=== PATIENT | female | born 1995 | race Caucasian/White ===

== ENCOUNTER 2017-11-08 09:12 | Inpatient (IN) ==
[2017-11-08] MEDS ORDERED: Famotidine 20 MG/2 ML VIAL IVP PRN (10:52)
[2017-11-08] MEDS ORDERED: Ondansetron 4 MG/2 ML VIAL IVP PRN (10:52)
[2017-11-08] MEDS ORDERED: Naloxone 0.4 MG/ML INJ IVP PRN (10:52)
[2017-11-08 12:05] LABS: Basophils # 0.1 K/mcL (0.0-0.2); Basophils % 0.6 %; Eosinophils % 0.4 %; Hematocrit 38.9 % (35.3-44.9); Hemoglobin 13.4 g/dL (11.5-15.4); Immature Granulocytes % 0.3 % (0-4); Lymphocytes # 1.6 K/mcL (0.6-4.6); Lymphocytes % 15.9 %; Mean Corpuscular HGB Conc 34.4 g/dL (31.6-35.5); Mean Corpuscular Hemoglobin 33.7 pg (28.0-33.3); Mean Corpuscular Volume 97.7 fL (83.0-100.0); Mean Platelet Volume 11.6 fL (9.4-12.4); Monocytes # 0.7 K/mcL (0.0-1.3); Monocytes % 6.9 %; Neutrophils # 7.5 K/mcL (1.6-8.9); Platelet Count 209 K/mcL (140-400); Red Blood Count 3.98 M/mcL (3.82-4.97); Red Cell Distribution Width 12.9 % (11.5-14.5); Segmented Neutrophils % 75.9 %
--- NOTE | 2017-11-08 12:25 | OB/GYN History & Physical ---
Date of Encounter: 11/08/17 Time of Encounter: 13:28 Assessment and Plan (1) 39 weeks gestation of Current visit: Yes Status: Acute Admit to L&D for observation of labor Expectant management Labs-CBC and clot to hold Intermittent auscultation Pain management plan-natural childbirth GBS negative Anticipate Dr. Short is the OB middleware solutions architect and is available as needed. (2) Intrauterine Current visit: Yes Status: Acute (3) Intact amniotic membranes Current visit: Yes Status: Acute Qualifiers: Trimester: third trimester Qualified Code(s): Z34.93 - Encounter for supervision of normal , unspecified, third trimester History of Present Illness Chief complaint: ?SROM HPI: Ms. Ladd is a 22 year old female at 39 weeks 4 days gestation with an EDB of 11/11/17 dated by early ultrasound. She presents today with complaints of leaking fluid after waking up this morning. She reports she was walking around her house and noticed that she has should soaked her underwear. She then changed her underwear did not appear. She also noticed at this time that she had some bloody show. She endorses good movement reports intermittent contractions and denies vaginal bleeding, headache, vision changes , epigastric pain. She has been seen by the midwives during this . Records are available electronically and have been reviewed. Labs: O+ GBS negative GC/CL negative Hep B negative HIV negative T. Palladium negative Rubella immune Varicella nonimmune Past Med Surg Social Fam HX - Past Medical History Medical history: other Additional medical history: wisdome teeth extraction @ appx 17-18 years of age Psychiatric history: no psych history - Past Surgical History Surgical History: no surgical history - Social History Smoking Status: Never smoker Smokeless Tobacco Status: No Alcohol use: none Drug use: none - Family History Mother Living Status: Still Living Hx Family Cardiac Disorders: No Hx Family Respiratory Disorders: No Hx Family Cancer: No Hx Family GI Disorders: No Hx Family Endocrine Disorder: No Hx Family Neuromuscular Disorders: No Hx Family Neurologic Disorders: No Hx Family HEENT Disorders: No Hx Family Autoimmune Disorders: No Obstetrical History - Pregnancies : 1 Para: 0 Term: 0 : 0 Ab's: 0 Livin Medications and Allergies Vit Calc,Iron,Folic [ Vitamins] 1 each PO 11/08/17 [History] 3 Allergy/AdvReac Type Severity Reaction Status Date / Time No Known Allergies Allergy Verified 11/08/17 10:51 Review of System OB All systems PM: reviewed and no additional remarkable complaints except as stated Exam - Constitutional Constitutional: well developed, well nourished, no acute distress, average body habitus - HEENT HEENT: Normocephaly, Mucus Membranes Moist - Neck Neck exam: full ROM - Lungs Respiratory exam: CTAB - Cardiovascular Cardiovascular exam: RRR, +S1, +S2 - Breasts Breast: bilateral: normal - Abdomen Abdomen: Present: bowel sounds normal, gravid, non tender - Extremities Extremities exam: normal capillary refill, radial pulses palpable and symmetrical - Vulva Vulva: bilateral: normal - Vagina Vagina: Present: normal moisture - Cervix Dilation: 1 Effacement: 50 Station: -2 - Uterus Uterus exam: Present: normal size, normal contour - Adnexa Adnexa: bilateral: normal - Anus/Rectum Anus/Rectum: Present: normal perianal skin Results Result Diagrams: 11/08/17 10:56 Abnormal lab results MCH 33.7 pg (28.0-33.3) H 11/08/17 10:56 All other labs normal. - VTE Reasons for not Prescribing Prophylaxis: Treatment not Indicated - Low risk for VTE
[2017-11-08 12:38] LABS: Amphetamine Screen,Urine Negative ng/mL (Cutoff=1000); Barbiturate Screen,Urine Negative ng/mL (Cutoff=200); Benzodiazepines Screen,Urine Negative ng/mL (Cutoff=200); Cannabinoid Screen,Urine Negative ng/mL (Cutoff = 50); Cocaine Screen,Urine Negative ng/mL (Cutoff= 300); Opiate Screen,Urine Negative ng/mL (Cutoff=300); Phencyclidine Screen,Urine Negative ng/mL (Cutoff=25)
[2017-11-08] MEDS ORDERED: Ringers Solution, Lactated 1,000 ML ONE ×2 (21:43→22:56)
--- NOTE | 2017-11-08 22:17 | OB Labor Progress Note ---
Date of Encounter: 11/08/17 Time of Encounter: 20:15 Labor Progress Note - Subjective Subjective: Pt reports contractions became more intense within the last hour starting around 1900. - Cervix Cervix: 5-6/80/-1 - Heart Tones Heart Tones: Intermittent auscultation Baseline 120s Audible accelerations No decelerations - [place]: Contractions every 2-3 minutes and palpate strong - Interventions Interventions: SVE - Plan Plan: Continue expectant management Encourage frequent position changes Anticipate
[2017-11-08] MEDS ORDERED: *HR* FentaNYL (PF) 100 MCG/2 ML VIAL EP ONE (23:39)
[2017-11-08] MEDS ORDERED: Bupivacaine-MPF 0.25% 10 ML VIAL EP ONE (23:39)
[2017-11-08] MEDS ORDERED: Epidural Premix (fent/bupiv) 110 ML EP SCH (23:45)
--- NOTE | 2017-11-09 00:19 | OB Labor Progress Note ---
Date of Encounter: 11/09/17 Time of Encounter: 23:34 Labor Progress Note - Subjective Subjective: Pt extremely uncomfortable with contractions and is not tolerating them well at this point. We discussed the possibility of placing epidural and patient declines at this time. - Cervix Cervix: unchanged, then rapidly changed to complete - Heart Tones Heart Tones: Baseline 120 Minimal to moderate variability Accelerations present variable and late decelerations FHR Category II - [place]: Contractions every 2-3 minutes and palpate strong - Interventions Interventions: SVE Epidural discussion - Plan Plan: Continue expectant management Position changes as needed Anticipate
--- NOTE | 2017-11-09 00:50 | OB/GYN Procedure Note ---
Delivery - Delivery Date: 11/09/17 Provider: Georgiana Sohrt Intrapartum events: none Delivery induction: none Delivery monitor: external FHT, external uterine Anesthesia: local Quantitated Blood Loss: 300 - Infant (s) Infant A Delivery Date: 11/09/17 Infant Delivery Time: 00:16 Presentation: vertex Position: [place] Route of delivery: vacuum extraction Gender: Male Viability: Viable Pounds: 8 Ounces: 2 Weight Gram: 3.7 kg at 1 minute: 8 at 5 mins: 9 Shoulder Dystocia: not encountered Specimens collected: cord blood Placenta: spontaneous, uterine exploration Cord: 3 umbilical vessels - Repair Episiotomy: midline - Complications Delivery complications: other (bradycardia) Delivery comments: Called to attend delivery with Aida Johnson for spontaneous labor. Patient with heart rate in the 70s. No anesthesia. With verbal consent a Kiwi vacuum was applied with 3 pulls and 1 pop off with maximum pressure of 550 mmHg and a midline episiotomy using local anesthesia. A vaginal delivery in the C[place] position of a vigorous male weighing 8 lbs. 2 oz. with Apgars of 8 at 1 minute and 9 at 5 minutes. No nuchal cord. was placed on maternal abdomen and cord was clamped and cut after pulsations ceased. was attended by nursery care team. Cord segment was obtained. Cord blood was obtained. Placenta was delivered spontaneous and intact. Uterus was explored to confirm no retained products of conception. Midline episiotomy was repaired with 3-0 Vicryl deeply to support the transverse peroneus and then with 3-0 Monocryl in usual fashion. Estimated blood loss 300 mL's. No other lacerations noted. Complications none. Both mother and recovering in stable condition in the LDR. - Disposition Mom disposition: stable in LDR [place] disposition: stable in LDR
[2017-11-09] MEDS ORDERED: Oxytocin 20 units/ LR 1000 mL 20 UNIT/1,000 ML BAG IVC ONE (02:03)
[2017-11-09] MEDS ORDERED: Measles/Mumps/Rubella Vacc 0.5 ML VIAL SQ PRN (03:06)
[2017-11-09] MEDS ORDERED: Sennosides 8.6 MG TABLET PO PRN (03:06)
[2017-11-09] MEDS ORDERED: Rho Immune Globulin 1,500 UNIT SYRINGE IM PRN (03:06)
[2017-11-09] MEDS ORDERED: Oxytocin 20 units/ LR 1000 mL 20 UNIT/1,000 ML BAG IVC SCH (03:06)
[2017-11-09] MEDS: *HR* HYDROcodone/Acet 5/325 mg TABLET PO PRN ×2 (03:54→23:12)
[2017-11-09] MEDS ORDERED: Benzocaine/Menthol 56 GM AEROSOL SPRAY TP PRN (08:28)
[2017-11-09] MEDS ORDERED: Prenatal Vit/FA 1 EACH TABLET PO SCH (09:00)
[2017-11-09] MEDS: Ibuprofen 600 MG TABLET PO SCH (09:02)
[2017-11-10] MEDS: Ibuprofen 600 MG TABLET PO SCH (04:34)
[2017-11-10 07:04] LABS: Basophils # 0.1 K/mcL (0.0-0.2); Basophils % 0.5 %; Eosinophils # 0.1 K/mcL (0.0-0.6); Eosinophils % 0.6 %; Hematocrit 36.4 % (35.3-44.9); Hemoglobin 12.2 g/dL (11.5-15.4); Immature Granulocytes % 0.5 % (0-4); Mean Corpuscular HGB Conc 33.5 g/dL (31.6-35.5); Mean Corpuscular Hemoglobin 33.5 pg (28.0-33.3); Mean Platelet Volume 10.9 fL (9.4-12.4); Monocytes # 0.9 K/mcL (0.0-1.3); Monocytes % 6.8 %; Platelet Count 212 K/mcL (140-400); Red Blood Count 3.64 M/mcL (3.82-4.97); Red Cell Distribution Width 13.2 % (11.5-14.5); Segmented Neutrophils % 68.6 %
[2017-11-10 07:50] VITALS: BP 104/70
--- NOTE | 2017-11-10 08:34 | Discharge Summary ---
Date of Encounter: 11/10/17 Time of Encounter: 08:32 - Discharge Diagnosis (1) Vaginal delivery Priority: Primary Status: Acute Comments: continue routine care discharge home today follow up in 4-6 weeks with CNM (2) Episiotomy pain Priority: Secondary Status: Acute Comments: Sitz bath prn [place] every 4-6 hours prn moderate pain (3) Breast feeding status of mother Priority: Secondary Status: Acute Comments: support prn - Discharge Medications Prescriptions: HYDROcodone/Acet 5/325 mg [[place] 5-325 mg] 1 tab PO Q6HR PRN 3 Days #12 tablet PRN Reason: Moderate Pain (4-6) Ibuprofen [Motrin] 600 mg PO Q6HR #60 tablet Docusate [Colace] 100 mg PO BID #60 capsule Home Medications: Vit Calc,Iron,Folic [ Vitamins] 1 each PO 11/08/17 [History] Benzocaine/Menthol [place] [Dermoplast [place]] 1 appl TP QID PRN aerosol 11/10/17 [Rx] Docusate [Colace] 100 mg PO BID #60 capsule 11/10/17 [Rx] HYDROcodone/Acet 5/325 mg [[place] 5-325 mg] 1 tab PO Q6HR PRN 3 Days #12 tablet 11/10/17 [Rx] Ibuprofen [Motrin] 600 mg PO Q6HR #60 tablet 11/10/17 [Rx] Allergies/Adverse Reactions: 3 Allergy/AdvReac Type Severity Reaction Status Date / Time No Known Allergies Allergy Verified 11/08/17 10:51 Data Procedures and tests throughout hospitalization: Laboratory Tests 11/08/17 11/08/17 11/10/17 10:52 10:56 06:36 WBC 9.8 13.1 H RBC 3.98 3.64 L Hgb 13.4 12.2 Hct 38.9 36.4 MCV 97.7 100.0 MCH 33.7 H 33.5 H MCHC 34.4 33.5 RDW 12.9 13.2 Plt Count 209 212 MPV 11.6 10.9 Immature Gran % 0.3 0.5 Seg Neutrophils % 75.9 68.6 Lymphocytes % 15.9 23.0 Monocytes % 6.9 6.8 Eosinophils % 0.4 0.6 Basophils % 0.6 0.5 Neutrophils # 7.5 9.0 H Lymphocytes # 1.6 3.0 Monocytes # 0.7 0.9 Eosinophils # 0.0 0.1 Basophils # 0.1 0.1 Urine Opiates Screen Negative Ur Barbiturates Screen Negative Ur Phencyclidine Scrn Negative Ur Amphetamines Screen Negative U Benzodiazepines Scrn Negative Urine Cocaine Screen Negative U Marijuana (THC) Screen Negative Labs on day of discharge: Labs from last 24 hours 11/10/17 06:36 WBC 13.1 H RBC 3.64 L Hgb 12.2 Hct 36.4 MCV 100.0 MCH 33.5 H MCHC 33.5 RDW 13.2 Plt Count 212 MPV 10.9 Immature Gran % 0.5 Seg Neutrophils % 68.6 Lymphocytes % 23.0 Monocytes % 6.8 Eosinophils % 0.6 Basophils % 0.5 Neutrophils # 9.0 H Lymphocytes # 3.0 Monocytes # 0.9 Eosinophils # 0.1 Basophils # 0.1 Date of admission: 11/08/17 09:12 Primary care physician: Christin Nguyen MD Consults: 11/09/17 03:06 Consult to Business Machine Mechanic [CONS] Routine Comment: Vaginal delivery, consult needed Discharging clinician: Zaynab Cevallos Anticipated date of discharge: 11/10/17 - Patient Status Disposition: Home, Self-Care Condition: Good Functional capacity at discharge: independent ambulation - Discharge Instructions Follow Up With: Christin Nguyen MD [Primary Care Provider] - Aida Johnson [Advanced Practice Nurse] - - Diet and Activity Activity: increase activity as tolerated Diet: regular diet Hospital Course Procedures: [facility] report reviewed by SOULEYMANE Martin Reason for admission: active labor Delivery: Episiotomy: midline Laceration: other Other procedures: none complications: none Discharge diagnosis: IUP at term delivered baby: male (breast feeding) Time Attestation: Total time spent providing and/or coordinating discharge services: Time Spent: Less than 30 minutes Exam - Constitutional Vitals: Temp Pulse Resp BP Pulse Ox 98.1 F 80 16 104/70 97 11/10/17 07:50 11/10/17 07:50 11/10/17 07:53 11/10/17 07:50 11/10/17 07:50 General appearance IM: A&O X 3, pleasant, answers questions appropriately - Respiratory Respiratory exam: Present: CTAB - Cardiovascular Cardiovascular exam IM: Present: RRR, +S1, +S2 - GI/Abdominal GI/Abdominal exam IM: normal bowel sounds - Uterine Tone: Firm Uterus Position: 1 Finger Below Umbilicus, Midline - Extremities Exam Extremities exam IM: Present: full ROM, normal capillary refill, normal inspection
== END 2017-11-10 10:01 | disposition home or self-care (01) | DRG 775 ==
LOC: 1NENULAB → OBSVTOIN 09:12 → 1NENUOBS 11-09 04:17
PROVIDERS: ADMIT Obstetrics & Gynecology; ATTEND Obstetrics & Gynecology

== ENCOUNTER 2020-10-29 23:51 | Inpatient (IN) ==
[~2020-10-29 23:51] MED LIST: *HR* Nalbuphine 10 MG/ML AMPUL IV PRN; Azithromycin 500 MG in 0.9 % Sodium Chloride 250 ML IVPB ONE; Famotidine 20 MG/2 ML VIAL IVP PRN; Metoclopramide 10 MG/2 ML VIAL IVP PRN; Naloxone 0.4 MG/ML INJ IVP PRN; Ondansetron 4 MG/2 ML VIAL IVP PRN
[2020-10-30 00:24] LABS: Basophils # 0.1 K/mcL (0.0-0.2); Basophils % 0.5 %; Eosinophils % 0.4 %; Hemoglobin 13.8 g/dL (11.5-15.4); Immature Granulocytes % 0.3 % (0-4); Lymphocytes # 1.9 K/mcL (0.6-4.6); Lymphocytes % 19.6 %; Mean Corpuscular HGB Conc 33.7 g/dL (31.6-35.5); Mean Corpuscular Hemoglobin 33.7 pg (28.0-33.3); Mean Corpuscular Volume 100.2 fL (83.0-100.0); Mean Platelet Volume 10.5 fL (9.4-12.4); Monocytes # 0.8 K/mcL (0.0-1.3); Monocytes % 8.2 %; Neutrophils # 6.8 K/mcL (1.6-8.9); Platelet Count 205 K/mcL (140-400); Red Blood Count 4.09 M/mcL (3.82-4.97); Red Cell Distribution Width 12.8 % (11.5-14.5); White Blood Count 9.6 K/mcL (4.3-11.1)
[2020-10-30] MEDS ORDERED: Penicillin G Potassium 5,000,000 UNIT in 0.9 % Sodium Chloride Mini Bag 100 ML IVPB ONE (01:59)
[2020-10-30] MEDS ORDERED: Penicillin G Potassium 2,500,000 UNIT/105 ML MLS IVPB SCH (04:00)
[2020-10-30] MEDS ORDERED: Oxytocin 20 units/ LR 1000 mL 20 UNIT/1,000 ML BAG IVC ONE (08:35)
[2020-10-30] MEDS ORDERED: Ringers Solution, Lactated 1,000 ML ONE (08:41)
[2020-10-30 10:06] LABS: Amphetamine Screen,Urine Negative ng/mL (Cutoff=1000); Barbiturate Screen,Urine Negative ng/mL (Cutoff=200); Benzodiazepines Screen,Urine Negative ng/mL (Cutoff=200); Cannabinoid Screen,Urine Negative ng/mL (Cutoff = 50); Cocaine Screen,Urine Negative ng/mL (Cutoff= 300); Opiate Screen,Urine Negative ng/mL (Cutoff=300); Phencyclidine Screen,Urine Negative ng/mL (Cutoff=25)
[2020-10-30] MEDS ORDERED: Ibuprofen 600 MG TABLET PO PRN (11:37)
[2020-10-30] MEDS ORDERED: Oxytocin 20 units/ LR 1000 mL 20 UNIT/1,000 ML BAG IVC SCH (11:37)
[2020-10-30] MEDS ORDERED: Acetaminophen 325 MG TABLET PO PRN (11:37)
[2020-10-30] MEDS ORDERED: *HR* HYDROcodone/Acet 5/325 mg TABLET PO PRN (11:37)
[2020-10-30] MEDS ORDERED: Lanolin 7 G OINT...G. TP PRN (21:36)
[2020-10-31 04:44] LABS: Basophils # 0.1 K/mcL (0.0-0.2); Basophils % 0.5 %; Eosinophils # 0.1 K/mcL (0.0-0.6); Hemoglobin 13.3 g/dL (11.5-15.4); Immature Granulocytes % 0.3 % (0-4); Lymphocytes # 2.2 K/mcL (0.6-4.6); Lymphocytes % 22.3 %; Mean Corpuscular HGB Conc 33.3 g/dL (31.6-35.5); Mean Corpuscular Hemoglobin 33.7 pg (28.0-33.3); Mean Corpuscular Volume 101.3 fL (83.0-100.0); Mean Platelet Volume 10.1 fL (9.4-12.4); Monocytes # 0.9 K/mcL (0.0-1.3); Monocytes % 8.8 %; Neutrophils # 6.6 K/mcL (1.6-8.9); Platelet Count 189 K/mcL (140-400); Red Blood Count 3.95 M/mcL (3.82-4.97); Red Cell Distribution Width 13.2 % (11.5-14.5); Segmented Neutrophils % 67.1 %; White Blood Count 9.8 K/mcL (4.3-11.1)
[2020-10-31 08:07] VITALS: BP 102/68
[2020-10-31] MEDS ORDERED: Prenatal Vit/FA 1 EACH TABLET PO SCH (09:00)
== END 2020-10-31 10:54 | disposition home or self-care (01) | DRG 807 ==
LOC: 1NENULAB → 1NENUOBS 10-30 11:25
PROVIDERS: ADMIT Registered Nurse; ATTEND Registered Nurse